=== PATIENT | male | born 1980 | race Caucasian/White ===

== ENCOUNTER 2019-12-30 19:45 | Emergency (ER) | payer OTHER, SELFPAY ==
[2019-12-30 19:56] VITALS: BP 161/110; PULSE 89; RESP 18; TEMP 36.7; O2SAT 95; BMI 46.0
[2019-12-30 20:12] VITALS: BP 184/96; PULSE 88; RESP 18; O2SAT 93
--- NOTE | 2019-12-30 20:39 | ECG_ITS ---
[facility], Former[facility] Test Date: 2019-12-30 Pat Name: Loc Carl Department: Room: Gender: Male Cook Ship: : 1980 Requested By: Steven Llanes Order Number: [id number] Harrison MD: Dee Epps M.D. Measurements Intervals Stuart Rate: 75 P: 28 TX: 186 QRS: 6 QRSD: 120 T: 16 QT: 365 QTc: 410 Interpretive Statements SINUS RHYTHM MODERATE INTRAVENTRICULAR CONDUCTION DELAY [110+ ms QRS DURATION] No previous ECG available for comparison Electronically Signed On 12-31-2019 12:41:46 CDT by Dee Epps M.D. [id number] f
[2019-12-30 20:49] VITALS: BP 165/98
[2019-12-30] MEDS: cloNIDine 0.1 mg Tablet PO (20:49)
[2019-12-30] MEDS: amlodipine 10 mg Tablet PO (20:55)
[2019-12-30] MEDS: lidocaine 2% viscous 15 ML, aluminum-mag hydrox-simethicon 30 ML, sucralfate oral liq 1 GM PO (21:00)
[2019-12-30 21:16] LABS: Basophils # 0.1 10^3/uL (0.0-0.1); Basophils % 0.7 %; Eosinophils # 0.5 10^3/uL (0.0-0.8); Eosinophils % 3.7 %; Hematocrit 47.8 % (42.0-52.0); Hemoglobin 14.9 g/dL (11.7-16.6); Lymphocytes # 3.2 10^3/uL (0.8-4.8); Lymphocytes % 25.7 %; Mean Corpuscular HGB Conc 31.2 g/dL (30.0-36.0); Mean Corpuscular Volume 80.2 fL (80-94); Mean Platelet Volume 10.5 fL (7.4-10.4); Monocytes # 0.9 10^3/uL (0.2-0.9); Neutrophils # 7.67 10^3/uL (1.8-7.7); Neutrophils % 62.5 %; Nucleated Red Blood Cells % 0 %; Platelet Count 342 10^3/cmm (130-400); Red Blood Count 5.96 10^6/uL (4.1-5.3); Red Cell Distribution Width 14.9 % (12.1-15.1); White Blood Count 12.3 10^3/uL (4.0-10.0)
[2019-12-30 21:24] LABS: Alanine Aminotransferase 22 U/L (0-41); Albumin Level 4.2 g/dL (3.5-5.2); Alkaline Phosphatase 79 IU/L (40-130); Anion Gap 14.9 (5-19); Aspartate Amino Transferase 14 U/L (0-40); Blood Urea Nitrogen 13 mg/dL (6-20); Calcium 9.8 mg/dL (8.5-10.5); Carbon Dioxide 23 mmol/L (22-29); Chloride 101 mmol/L (98-107); Creatine Phosphokinase 88 U/L (39-308); Globulin 3.2 g/dL (1.3-4.6); Glomerular Filtration Rate 108.8 mL/min (90-130); Glucose 131 mg/dL (65-115); Osmolality Calculated 278 mOsm/kg (285-295); Potassium 3.9 mmol/L (3.5-5.1); Sodium 135 mmol/L (136-145); Total Bilirubin 0.2 mg/dL (0.15-1.2); Total Protein 7.4 g/dL (6.6-8.7)
[2019-12-30 21:26] LABS: Troponin T (5th) Once 6 ng/L (0-15)
[2019-12-30 22:02] VITALS: BP 143/77; PULSE 76; RESP 16; O2SAT 94
--- NOTE | 2019-12-31 03:26 | W.ED.GENADLT ---
HPI - General Adult General: Chief complaint: General Medical Stated complaint: high bp Time Seen by Provider: 12/30/19 20:30 History of Present Illness: HPI narrative: Healthy 39-year-old with no prior history of hypertension. He checked his blood pressure tonight, as he had not checked it in a while, and it was significantly elevated. He checks it in both arms on a couple of different occasions today, and it remained high so. He presents to the emergency room. Evidently he is going out of town, and was concerned about leaving town with his blood pressure being this high. He also complained of some heartburn that was more significant today. Onset (ago): day(s) Radiation: non-radiation Relieving factors: none Exacerbating factors: none Associated symptoms: Deny chest pain, confusion, diaphoresis, dyspnea, fevers/chills, headache(s), rash or vomiting Review of Systems Const: Denies: diaphoresis Eyes: Denies: change in vision or blurry vision ENMT: Denies: swelling of lips/tongue, change in hearing or sinus pain Card: Denies: chest pain Resp: Denies: dyspnea, productive cough, non-productive cough or wheezing GI: Denies: vomiting : Denies: difficulty urinating or hematuria Musc: Denies: neck pain or back pain Skin/Breast: Denies: rash, pruritus or erythema Neuro: Denies: headache(s) or confusion Psych: Denies: anxiety Physical Exam Const: GENERAL APPEARANCE: well developed ORIENTATION/CONSCIOUSNESS: Yes oriented to person, Yes oriented to place and Yes oriented to time HENMT: COMMON NORMALS: normocephalic, external ears normal and Normal external nose present HEAD & SCALP: normocephalic FACE & SINUS: normal facial exam NOSE: Normal external nose present and No nasal discharge present EXTERNAL EAR: Yes external ears normal MOUTH: tongue normal Eye: COMMON NORMALS: Equal, round and reactive pupils present, EOMs intact bilaterally and conjunctivae normal EYELID: eyelids normal CONJUNCTIVA: Yes conjunctivae normal PUPIL: Yes Equal, round and reactive pupils present Neck/C-Spine: GENERAL: No tracheal deviation Chest: COMMONS NORMALS: normal inspection of the chest CHEST: No tenderness Resp: COMMON NORMALS: clear to auscultation bilaterally EFFORT & INSPECTION: No tachypneic, No respiratory distress, No retractions, No uses accessory muscles and No tracheal deviation AUSCULTATION: clear to auscultation bilaterally, no rhonchi, no wheezes and lung sounds not diminished Cardio: COMMON NORMALS: regular rate and regular rhythm RATE: regular rate RHYTHM: regular rhythm HEART SOUNDS: no murmurs PERIPHERAL PULSES: radial pulses present GI: INSPECTION: No abdominal distension AUSCULTATION: No Hyperactive bowel sounds present and No Hypoactive bowel sounds present PALPATION: No Guarding due to palpation present (GI) and No Rigid due to palpation PERCUSSION: no dullness to percussion and no tympanic to percussion Neuro: SENSORIUM/ORIENTATION: Yes oriented to person, Yes oriented to place and Yes oriented to time Psych: COMMON NORMALS: mental status grossly normal Skin: COMMON NORMALS: no rashes or lesions noted GENERAL SKIN EXAM: no rashes or lesions noted Course Vital Signs: Vital signs: Vital Signs Temperature 98.0 F 12/30/19 19:56 Pulse Rate 76 12/30/19 22:02 Respiratory Rate 16 12/30/19 22:02 Blood Pressure 143/77 12/30/19 22:02 Pulse Oximetry 94 12/30/19 22:02 MDM - General Adult MDM Narrative: Medical decision making narrative: Pressure came down nicely with 1 dose of clonidine followed by amlodipine. He does have an increased white blood cell count, otherwise labs are benign. His troponin is 6. His EKG is normal he will be given a prescription of amlodipine, told him to take his pressure twice daily. Lab Data: Labs: Lab Results 12/30/19 12/30/19 12/30/19 Range/Units 20:56 20:56 20:56 WBC 12.3 H (4.0-10.0) 10^3/ uL RBC 5.96 H (4.1-5.3) 10^6/u L Hgb 14.9 (11.7-16.6) g/dL Hct 47.8 (42.0-52.0) % MCV 80.2 (80-94) fL MCH 25.0 L (28.0-34.0) pg MCHC 31.2 (30.0-36.0) g/dL RDW 14.9 (12.1-15.1) % Plt Count 342 (130-400) 10^3/c mm MPV 10.5 H (7.4-10.4) fL Neut % (Auto) 62.5 % Lymph % (Auto) 25.7 % [place] % (Auto) 7.0 % Eos % (Auto) 3.7 % Baso % (Auto) 0.7 % Neut # (Auto) 7.67 (1.8-7.7) 10^3/u L Lymph # (Auto) 3.2 (0.8-4.8) 10^3/u L [place] # (Auto) 0.9 (0.2-0.9) 10^3/u L Eos # (Auto) 0.5 (0.0-0.8) 10^3/u L Baso # (Auto) 0.1 (0.0-0.1) 10^3/u L Nucleated RBC % (a uto) 0 % Nucleated RBCs # 0.0 /100WBC Sodium 135 L (136-145) mmol/L Potassium 3.9 (3.5-5.1) mmol/L Chloride 101 (98-107) mmol/L Carbon Dioxide 23 (22-29) mmol/L Anion Gap 14.9 (5-19) BUN 13 (6-20) mg/dL Creatinine 0.8 (0.7-1.2) mg/dL GFR Calculation 108.8 (90-130) mL/min Glucose 131 H (65-115) mg/dL Calculated Osmolal ity 278 L (285-295) mOsm/k g Calcium 9.8 (8.5-10.5) mg/dL Magnesium 2.0 (1.7-2.3) mg/dL Total Bilirubin 0.2 (0.15-1.2) mg/dL AST 14 (0-40) U/L ALT 22 (0-41) U/L Alkaline Phosphata se 79 (40-130) IU/L Creatine Kinase 88 (39-308) U/L Troponin T Gen 5 n g/L 6 (0-15) ng/L Total Protein 7.4 (6.6-8.7) g/dL Albumin 4.2 (3.5-5.2) g/dL Globulin 3.2 (1.3-4.6) g/dL Discharge Plan Discharge Patient Disposition: Home Clinical Impression: Hypertension Qualifiers: Hypertension type: essential hypertension Qualified Code(s): I10 - Essential (primary) hypertension Condition: Stable Prescriptions: New amlodipine 10 mg tablet 10 mg PO DAILY Qty: 30 RF: 0 Discharge Orders: Discharge Order (Routine); Ordered 12/30/19 Ordered By: Steven Herrera Discharge Diet: Low Salt Discharge Activity: Increase activity as tolerated Patient Instructions: Hypertension (ED) Activity Restrictions/Additional Instructions: Check your blood pressures twice daily. If blood pressure is staying above 140/90, take the medication prescribed. See your doctor for follow-up. 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
== END 2019-12-30 22:03 | disposition home or self-care (01) ==
PROVIDERS: Emergency Provider Emergency Medicine
DX: I10 Essential (primary) hypertension (principal)
CPT/HCPCS: 12345; 80053; 82550; 83735; 84484; 85025; 93005; 99281; 99283

== ENCOUNTER → 2020-12-31 13:33 | Outpatient (BNVA) | payer OTHER, SELFPAY | PROVIDERS: Visit Provider Registered Nurse Neonatal Intensive Care | DX: Z20.822 Contact with and (suspected) exposure to COVID-19 (principal); J02.9 Acute pharyngitis, unspecified | CPT/HCPCS: 87635 ==

== ENCOUNTER 2021-04-10 14:49 | Observation (INO) | payer OTHER, SELFPAY ==
[2021-04-10 15:19] VITALS: BP 120/78; PULSE 89; RESP 16; TEMP 37.1; O2SAT 96
--- NOTE | 2021-04-10 16:13 | USR_ITS ---
PROCEDURE INFORMATION: Exam: US Scrotum and Artery or Vein of the Abdominal and/or Reproductive Organs, Limited Scrotum Exam date and time: 04/10/2021 4:13 PM Age: 41 years old Clinical indication: Scrotum pain; Additional info: Large abscess TECHNIQUE: Imaging protocol: Real-time ultrasound of the scrotum. Real-time duplex ultrasound scan of the arterial or venous flow with brooke scale, color Doppler flow and spectral waveform analysis with image documentation. Limited Duplex exam focused of the scrotum. Duplex images required to evaluate for torsion and other vascular conditions. COMPARISON: CT Abdomen/Pelvis Renal [id number] 09/18/2018 5:56 PM FINDINGS: Right testicle: Right testicular contour and parenchymal echotexture is normal. There is no mass. There is normal blood flow in the right testicle. The right testicle measures 4.2 x 2.8 x 2.7 cm. Left testicle: Left testicular contour and parenchymal echotexture is normal. There is no mass. There is normal blood flow in the left testicle. The left testicle measures 4.0 x 2.6 x 2.4 cm. Epididymides: There is a 4 mm cyst in the left epididymal head. Scrotum: No significant hydrocele. There is marked posterior scrotal wall edema and hyperemia. The skin is markedly thickened. There is no discrete fluid collection. US/US scrotum [id number] IMPRESSION: 1. Scrotal wall edema. No abscess. 2. Normal testicles. Radiation Dose CTDIVOL = (mGy): DLP = (mGy-cm)
--- NOTE | 2021-04-10 16:18 | W.ED.MALEGU ---
Documented by User: BLAIRE Cagle 04/10/21 16:30 HPI - Male Genitourinary General: Chief complaint: Wound/Laceration Stated complaint: PAIN/SWELLING LUMP IN GROIN AREA Time Seen by Provider: 04/10/21 15:57 Source: patient Mode of arrival: ambulatory Limitations: no limitations History of Present Illness: HPI Narrative: Patient is a very nice 41-year-old male who presents to ED today for evaluation for a genital abscess. Patient states he first noticed a small lesion that he thought was most likely an ingrown hair a few weeks ago. Patient tried to cleanse the area thoroughly but began noticing some mild swelling and redness. He states he was seen at urgent care and prescribed doxycycline. Patient states he has been on this medication over the past 72 hours but has significantly worsened over that time period. He does not complain of fevers but reports chills last night. He has no history of staph/MRSA. He is not a diabetic. Patient is not immunocompromised. He has no history of new sexual partners or concerns for STDs. No dysuria or penile discharge. MD Complaint: other (scrotal swelling/abscess) Onset (ago): day(s) Duration: constant Location: right testicle (scrotum) Severity: severe Quality: aching Exacerbating factors: other (walking) Associated symptoms: Reports fevers/chills; Deny nausea or vomiting Related Data: Sexually active: Yes Review of Systems Const: Reports: chills; Denies: fever(s), body aches or fatigue Card: Denies: chest pain Resp: Denies: dyspnea GI: Denies: abdominal pain, nausea, vomiting or diarrhea [facility] ED PFSH: Social History (Updated 12/31/20 @ 12:45 by Mikki Mathis LPN) Smoking and tobacco status: current every day smoker Physical Exam Const: COMMON NORMALS: no acute distress, patient oriented x3, no limitations and alert NUTRITIONAL APPEARANCE: obese morbidly obese ORIENTATION/CONSCIOUSNESS: Yes awake, Yes oriented to person, Yes oriented to place and Yes oriented to time Resp: COMMON NORMALS: normal respiratory effort Cardio: COMMON NORMALS: regular rate and regular rhythm RATE: regular rate RHYTHM: regular rhythm GI: COMMON NORMALS: Normal to inspection, nondistended, normoactive bowel sounds present, Soft to palpation and non-tender PALPATION: Yes Soft to palpation OTHER: limited secondary to body habitus : PENIS: normal penis SCROTUM: Yes scrotal swelling TESTES: Yes other (normal L testicle) OTHER: pt has significant R sided scrotal swelling, erythema, and tenderness; he has a small area to the inferior aspect that is actively draining foul smelling purulent material; R testicle cannot be palpated secondary to edema; he has edematous/indurated skin to anterior scrotum; infection does not seem to extend into perineal region Neuro: COMMON NORMALS: patient oriented x3 SENSORIUM/ORIENTATION: Yes alert, Yes oriented to person, Yes oriented to place and Yes oriented to time Course Vital Signs: Vital signs: Vital Signs Temperature 98.7 F 04/10/21 15:19 Pulse Rate 86 04/10/21 17:33 Respiratory Rate 18 04/10/21 17:48 Blood Pressure 157/83 04/10/21 17:33 Pulse Oximetry 95 04/10/21 17:33 MDM - Male Lab Data: Labs: Lab Results 04/10/21 04/10/21 04/10/21 16:45 16:45 17:18 WBC 16.7 10^3/uL H 10 ^3/uL (4.0-10.0) RBC 5.88 10^6/uL H 10 ^6/uL (4.1-5.3) Hgb 15.0 g/dL g/dL (11.7-16.6) Hct 47.3 % % (42.0-52.0) MCV 80.4 fl fl (80-94) MCH 25.5 pg L pg (28.0-34.0) MCHC 31.7 g/dL g/dL (30.0-36.0) RDW 15.4 % H % (12.1-15.1) Plt Count 344 10^3/cmm 10^3 /cmm (130-400) MPV 10.3 fL fL (7.4-10.4) Neut % (Auto) 76.7 % % Lymph % (Auto) 12.1 % % [place] % (Auto) 8.2 % % Eos % (Auto) 2.0 % % Baso % (Auto) 0.5 % % Neut # (Auto) 12.79 10^3/uL H 1 0^3/uL (1.8-7.7) Lymph # (Auto) 2.0 10^3/uL 10^3/ uL (0.8-4.8) [place] # (Auto) 1.4 10^3/uL H 10^ 3/uL (0.2-0.9) Eos # (Auto) 0.3 10^3/uL 10^3/ uL (0.0-0.8) Baso # (Auto) 0.1 10^3/uL 10^3/ uL (0.0-0.1) Nucleated RBC % (a uto) 0 % % Nucleated RBCs # 0.0 /100WBC /100W BC Sodium 138 mmol/L mmol/L (136-145) Potassium 3.8 mmol/L mmol/L (3.5-5.1) Chloride 99 mmol/L mmol/L (98-107) Carbon Dioxide 28 mmol/L mmol/L (22-29) Anion Gap 14.8 (5-19) BUN 9 mg/dL mg/dL (6-20) Creatinine 0.7 mg/dL mg/dL (0.7-1.2) GFR Calculation 125.5 mL/min mL/m in (90-130) Glucose 92 mg/dL mg/dL (65-115) Calculated Osmolal ity 284 mOsm/kg L mOs m/kg (285-295) Calcium 9.4 mg/dL mg/dL (8.5-10.5) Total Bilirubin 0.4 mg/dL mg/dL (0.15-1.2) AST 13 U/L U/L (0-40) ALT 16 U/L U/L (0-41) Alkaline Phosphata se 76 IU/L IU/L (40-130) C-Reactive Protein 162.3 mg/L H mg/L (0.0-4.9) Total Protein 7.5 g/dL g/dL (6.6-8.7) Albumin 4.1 g/dL g/dL (3.5-5.2) Globulin 3.4 g/dL g/dL (1.3-4.6) Urine Color Dark yellow (Yellow) Urine Appearance Hazy A (CLEAR) Urine pH 5 (5-7) Ur Specific Gravit y 1.020 (1.005-1.030) Urine Protein Neg (Negative) Urine Glucose (UA) Norm (Normal) Urine Ketones Negative (Negative) Urine Blood Neg (Negative) Urine Nitrate Negative (Negative) Urine Bilirubin Neg (Negative) Urine Urobilinogen Norm mg/dL mg/dL (Negative) Ur Leukocyte Catherine ase Negative (Negative) Discharge Plan Discharge Prescriptions: No Action amlodipine 10 mg tablet 10 mg PO DAILY Qty: 30 RF: 0 Coding Level of Care Code ED Vehicle Cost Engineer for Chg Fwd Exam Detailed Documented by User: ARTURO Irene 04/10/21 18:19 HPI - Male Genitourinary General: Chief complaint: Wound/Laceration Stated complaint: PAIN/SWELLING LUMP IN GROIN AREA Time Seen by Provider: 04/10/21 15:57 PFSH ED PFSH: Social History (Updated 12/31/20 @ 12:45 by Mikki Mathis LPN) Smoking and tobacco status: current every day smoker Course ED course: 1700, received patient from Mayelin Rodriguez PA-C, we are awaiting lab and imaging report. Patient has a probable scrotal abscess on the right side. The area is draining. Patient was started on doxycycline 72 hours ago. Patient is morbidly obese with no history of diabetes. 1800, CT and ultrasound both come back with induration of the tissue, discussed this with Dr. Mccarthy who recommended that we speak with the attending physician for hospitalist therapy for admission. Consultations: Consultation #1: Reviewed patient with Dr. Israel for admission to the hospital for cellulitis of the scrotum. Vital Signs: Vital signs: Vital Signs Temperature 98.7 F 04/10/21 15:19 Pulse Rate 86 04/10/21 17:33 Respiratory Rate 18 04/10/21 17:48 Blood Pressure 157/83 04/10/21 17:33 Pulse Oximetry 95 04/10/21 17:33 MDM - Male MDM Narrative: Medical decision making narrative: Patient came in today for complaints of induration and swelling with pain to the right scrotum. Patient reports no significant fever. Patient appears mildly unwell but not toxic. Patient does appear in some significant pain. On exam we note some induration and swelling to the scrotum with an area to the posterior part of the scrotum that is draining some serous fluid. There is some redness that extends onto the thigh. Differential diagnosis includes Miri's gangrene, cellulitis, abscess. CT and ultrasound indicated just induration of the tissue without any signs of gas formation. CBC had a white count of 16.7. Remainder of labs were unremarkable. Blood cultures were sent. I reviewed the exam with Dr. Mccarthy who recommended patient be admitted to the hospital for IV therapy. Patient was given Levaquin and vancomycin in the ER. Dr. Israel was consulted for continuation of care in hospital. Lab Data: Labs: Lab Results 04/10/21 04/10/21 04/10/21 16:45 16:45 17:18 WBC 16.7 10^3/uL H 10 ^3/uL (4.0-10.0) RBC 5.88 10^6/uL H 10 ^6/uL (4.1-5.3) Hgb 15.0 g/dL g/dL (11.7-16.6) Hct 47.3 % % (42.0-52.0) MCV 80.4 fl fl (80-94) MCH 25.5 pg L pg (28.0-34.0) MCHC 31.7 g/dL g/dL (30.0-36.0) RDW 15.4 % H % (12.1-15.1) Plt Count 344 10^3/cmm 10^3 /cmm (130-400) MPV 10.3 fL fL (7.4-10.4) Neut % (Auto) 76.7 % % Lymph % (Auto) 12.1 % % [place] % (Auto) 8.2 % % Eos % (Auto) 2.0 % % Baso % (Auto) 0.5 % % Neut # (Auto) 12.79 10^3/uL H 1 0^3/uL (1.8-7.7) Lymph # (Auto) 2.0 10^3/uL 10^3/ uL (0.8-4.8) [place] # (Auto) 1.4 10^3/uL H 10^ 3/uL (0.2-0.9) Eos # (Auto) 0.3 10^3/uL 10^3/ uL (0.0-0.8) Baso # (Auto) 0.1 10^3/uL 10^3/ uL (0.0-0.1) Nucleated RBC % (a uto) 0 % % Nucleated RBCs # 0.0 /100WBC /100W BC Sodium 138 mmol/L mmol/L (136-145) Potassium 3.8 mmol/L mmol/L (3.5-5.1) Chloride 99 mmol/L mmol/L (98-107) Carbon Dioxide 28 mmol/L mmol/L (22-29) Anion Gap 14.8 (5-19) BUN 9 mg/dL mg/dL (6-20) Creatinine 0.7 mg/dL mg/dL (0.7-1.2) GFR Calculation 125.5 mL/min mL/m in (90-130) Glucose 92 mg/dL mg/dL (65-115) Calculated Osmolal ity 284 mOsm/kg L mOs m/kg (285-295) Calcium 9.4 mg/dL mg/dL (8.5-10.5) Total Bilirubin 0.4 mg/dL mg/dL (0.15-1.2) AST 13 U/L U/L (0-40) ALT 16 U/L U/L (0-41) Alkaline Phosphata se 76 IU/L IU/L (40-130) C-Reactive Protein 162.3 mg/L H mg/L (0.0-4.9) Total Protein 7.5 g/dL g/dL (6.6-8.7) Albumin 4.1 g/dL g/dL (3.5-5.2) Globulin 3.4 g/dL g/dL (1.3-4.6) Urine Color Dark yellow (Yellow) Urine Appearance Hazy A (CLEAR) Urine pH 5 (5-7) Ur Specific Gravit y 1.020 (1.005-1.030) Urine Protein Neg (Negative) Urine Glucose (UA) Norm (Normal) Urine Ketones Negative (Negative) Urine Blood Neg (Negative) Urine Nitrate Negative (Negative) Urine Bilirubin Neg (Negative) Urine Urobilinogen Norm mg/dL mg/dL (Negative) Ur Leukocyte Catherine ase Negative (Negative) Discharge Plan Discharge Prescriptions: No Action amlodipine 10 mg tablet 10 mg PO DAILY Qty: 30 RF: 0 Coding Level of Care Code ED Vehicle Cost Engineer for Tammi Fwd Exam Detailed
[2021-04-10 16:47] VITALS: RESP 18
[2021-04-10] MEDS: morphine 4 mg/mL SDV 1 mL IVP ×2 (16:47→17:48)
[2021-04-10] MEDS: ondansetron 2 mg/ML SDV 2 mL 4 MG IVP (16:48)
--- NOTE | 2021-04-10 16:49 | CTR_ITS ---
PROCEDURE INFORMATION: Exam: CT Abdomen And Pelvis With Contrast Exam date and time: 04/10/2021 4:49 PM Age: 41 years old Clinical indication: Pain; Other: Abcess on genitals; Prior surgery; Surgery type: Hernia; Additional info: Severe R scrotal/genital abscess TECHNIQUE: Imaging protocol: Computed tomography of the abdomen and pelvis with contrast. Radiation optimization: All CT scans at this facility use at least one of these dose optimization techniques: automated exposure control; mA and/or kV adjustment per patient size (includes targeted exams where dose is matched to clinical indication); or iterative reconstruction. Contrast material: OMNI 350; Contrast volume: 95 ml; Contrast route: INTRAVENOUS (IV); COMPARISON: CT Abdomen/Pelvis Renal [id number] 09/18/2018 5:56 PM RADIATION DOSE METRICS: Total DLP (mGy-cm): 2814.83 FINDINGS: Lungs: Lung bases are clear. Liver: The liver is normal. Gallbladder and bile ducts: The gallbladder is normal. There is no biliary dilation. Pancreas: The pancreas is unremarkable. Spleen: The spleen is unremarkable. Adrenal glands: The adrenal glands are unremarkable. Kidneys and ureters: The kidneys are unremarkable. No hydronephrosis or stones. No ureteral dilation. Stomach and bowel: The stomach is decompressed, preventing meaningful evaluation of wall thickness. The small bowel is nondilated. The colon is unremarkable. Appendix: The appendix is normal. Intraperitoneal space: There is no free air or significant intraperitoneal free fluid. Vasculature: The aorta is unremarkable. There is no aneurysm. The portal, splenic and superior mesenteric veins are patent. Lymph nodes: There are prominent bilateral inguinal lymph nodes which are likely reactive. There is no retroperitoneal or mesenteric lymphadenopathy. Urinary bladder: The urinary bladder is decompressed, preventing meaningful evaluation of wall thickness. Reproductive: There is marked diffuse edema and skin thickening of the posteroinferior aspect of the scrotum on the right. In the region of maximal skin thickening there is a subtle irregular hypodensity (axial series 2, image 117) measuring 12 x 9 mm. This finding suggests the presence of trace fluid but is not a drainable abscess. Bones/joints: Bones are unremarkable. Soft tissues: Right scrotal edema. No soft tissue gas. There is a small fat containing umbilical hernia. CT/CT abdomen pelvis w con* [id number] IMPRESSION: Marked scrotal wall edema without a drainable abscess. Radiation Dose CTDIVOL = (mGy): DLP = 2814.83 (mGy-cm)
--- NOTE | 2021-04-10 16:51 | PC.NURSE ---
PATIENT GIVEN GOWN AND CHANGED FOR EXAM. PROVIDER AND THIS NURSE PRESENT FOR EXAMINATION. WHILE PATIENT WAS REMOVING UNDERWEAR, SCROTUM BEGAN TO LEAK FLUID. FLUID COLLECTED FOR CULTURE. PATIENT SCROTUM APPEARS SWOLLEN AND RED. PATIENT TOLERATED EXAM WELL.
[2021-04-10 16:54] LABS: Basophils # 0.1 10^3/uL (0.0-0.1); Basophils % 0.5 %; Eosinophils # 0.3 10^3/uL (0.0-0.8); Hematocrit 47.3 % (42.0-52.0); Lymphocytes % 12.1 %; Mean Corpuscular HGB Conc 31.7 g/dL (30.0-36.0); Mean Corpuscular Hemoglobin 25.5 pg (28.0-34.0); Mean Corpuscular Volume 80.4 fl (80-94); Mean Platelet Volume 10.3 fL (7.4-10.4); Monocytes # 1.4 10^3/uL (0.2-0.9); Monocytes % 8.2 %; Neutrophils # 12.79 10^3/uL (1.8-7.7); Neutrophils % 76.7 %; Nucleated Red Blood Cells % 0 %; Platelet Count 344 10^3/cmm (130-400); Red Blood Count 5.88 10^6/uL (4.1-5.3); Red Cell Distribution Width 15.4 % (12.1-15.1); White Blood Count 16.7 10^3/uL (4.0-10.0)
[2021-04-10 17:18] LABS: Alanine Aminotransferase 16 U/L (0-41); Albumin Level 4.1 g/dL (3.5-5.2); Alkaline Phosphatase 76 IU/L (40-130); Anion Gap 14.8 (5-19); Aspartate Amino Transferase 13 U/L (0-40); Blood Urea Nitrogen 9 mg/dL (6-20); C Reactive Protein 162.3 mg/L (0.0-4.9); Calcium 9.4 mg/dL (8.5-10.5); Carbon Dioxide 28 mmol/L (22-29); Chloride 99 mmol/L (98-107); Globulin 3.4 g/dL (1.3-4.6); Glomerular Filtration Rate 125.5 mL/min (90-130); Glucose 92 mg/dL (65-115); Osmolality Calculated 284 mOsm/kg (285-295); Potassium 3.8 mmol/L (3.5-5.1); Sodium 138 mmol/L (136-145); Total Bilirubin 0.4 mg/dL (0.15-1.2); Total Protein 7.5 g/dL (6.6-8.7)
[2021-04-10] MEDS: iohexol 350 mg/mL 100 mL Btl IV (17:20)
[2021-04-10 17:33] VITALS: BP 157/83; PULSE 86; RESP 18; O2SAT 95
[2021-04-10 17:37] LABS: Add Urine Microscopic? NO; Charge for UA Resulting for Rev
[2021-04-10] MEDS: levofloxacin-dextrose 5 % 500 MG/100 ML PREMIX 100 MG IV (17:38)
[2021-04-10 17:45] LABS: Bilirubin Urine Neg (Negative); Blood Urine Neg (Negative); Glucose Urine UA Norm (Normal); Ketones Urine Negative (Negative); Leukocyte Esterase Urine Negative (Negative); Nitrate Urine Negative (Negative); Protein Urine Neg (Negative); Urine Appearance Hazy (CLEAR); Urine Color Dark Yellow (Yellow); Urobilinogen Urine Norm (Negative); pH Urine 5 (5-7)
[2021-04-10 17:48] VITALS: RESP 18
--- NOTE | 2021-04-10 18:31 | P.HP_ITS ---
Providers/Chief Complaint Primary Care Provider: Eva Laird MD Chief Complaint: PAIN/SWELLING LUMP IN GROIN AREA History of Present Illness Loc Carl is a 41 year old male with a past medical history of hypertension, who presents [facility] due to scrotal swelling. Patient tells me that a few days ago, he noticed an area of tenderness over his scrotum, felt like a bump, he was able to pop it, and expelled some sputum, over the next few days, the area of swelling, tenderness rapidly expanded, and it continues to d rain, so he went to his primary care provider and was given antibiotics, he is taken about 2 days of antibiotics, but the erythema, tenderness and swelling continues to rapidly involve the entire scrotum, he has a significant scrotal pain, no burning with urination, no history of STDs, no fevers, no chills. Review of Systems Const: Denies: fever(s), chills, fatigue or malaise ENMT: Denies: nasal congestion Resp: Denies: dyspnea, productive cough, non-productive cough or wheezing GI: Denies: abdominal pain, nausea, vomiting, hematochezia or melena : Denies: flank pain, difficulty urinating, dysuria, urinary frequency, urinary urgency, urinary hesitancy or difficulty starting urination Musc: Denies: back pain Skin/Breast: Reports: rash and erythema Neuro: Denies: headache(s) Medications/Allergies Home Medications Medication Instructions Recorded Confirmed Last Taken Type amlodipine 10 mg PO DAILY #30 tab 12/30/19 12/31/20 Unknown Rx Allergies Allergy/AdvReac Type Severity Reaction Status Date / Time sulfamethoxazole Allergy ALGY-Rash Verified 12/31/20 12:44 [From Bactrim] trimethoprim [From Bactrim] Allergy ALGY-Rash Verified 12/31/20 12:44 PFSH Acute PFSH: Medical History (Updated 04/10/21 @ 18:35 by Parag Israel MD) Hypertension Surgical History (Updated 04/10/21 @ 18:34 by Parag Israel MD) History of hernia surgery History of knee surgery Family History (Updated 04/10/21 @ 18:34 by Parag Israel MD) Family/Other Colon cancer Father Pacemaker Social History (Updated 04/10/21 @ 18:34 by Parag Israel MD) Smoking and tobacco status: current every day smoker Alcohol intake: current Substance/Drug Use: never Vitals/I&O/Wt Last Vital Signs Temp 98.7 F 04/10/21 15:19 Pulse 86 04/10/21 17:33 Resp 18 04/10/21 17:48 BP 157/83 04/10/21 17:33 Pulse Ox 95 04/10/21 17:33 Weight last 48 hrs Weight 156.489 kg Physical Exam Const: COMMON NORMALS: no acute distress and patient oriented x3 GENERAL APPEARANCE: cooperative and comfortable HENMT: COMMON NORMALS: normocephalic HEAD & SCALP: normocephalic Eye: COMMON NORMALS: Equal, round and reactive pupils present and EOMs intact bilaterally PUPIL: Yes Equal, round and reactive pupils present Neck/C-Spine: COMMON NORMALS: full ROM and no lymphadenopathy THYROID: Thyroid normal Lymph: LYMPHATIC: no lymphadenopathy noted Resp: COMMON NORMALS: normal respiratory effort, No retractions, No use of accessory muscles and clear to auscultation bilaterally AUSCULTATION: clear to auscultation bilaterally Cardio: COMMON NORMALS: regular rate, regular rhythm, S1 normal heart sound present, S2 normal heart sound present, No gallops present (Cardio), No clicks present (Cardio) and No murmurs present (Cardio) RATE: regular rate RHYTHM: regular rhythm HEART SOUNDS: S1 normal heart sound present and S2 normal heart sound present GI: COMMON NORMALS: Normal to inspection, nondistended, normoactive bowel sounds present, Soft to palpation and non-tender : PENIS: uncircumcised OTHER: Significant scrotal swelling, erythema, tenderness to involve the entire scrotum, stretching into the perineum Right testicle, open area, with active pustulant drainage, palpable density Extremity: COMMON NORMALS: normal to inspection and no pedal edema Neuro: COMMON NORMALS: patient oriented x3, CN's II-XII intact bilaterally, moves all extremities and no focal motor deficits Psych: COMMON NORMALS: mental status grossly normal, Normal thought process present and cooperative THOUGHT PROCESS: Normal thought process present Data : 04/10/21 16:45 04/10/21 16:45 Micro: Microbiology 04/10/21 16:11 Gram Stain - Final Scrotum A&P Assessment and plan (1) Cellulitis of scrotum: -Scrotal cellulitis with concern for underlying abscess -Ultrasound of scrotum shows scrotal wall edema, no abscess, normal testicles -CT scan of abdomen pelvis shows scrotal wall edema -WBC 16.7, CRP 162 -UA with no evidence of UTI -Start broad-spectrum antibiotic therapy, vancomycin, Zosyn -Cultures pending -Consult urology service for possible incision and drainage -Full code -Lovenox for DVT prophylaxis Status: Acute Attestations Medical Necessity Statement*: Patient requires hospitalization, outpatient with observation, for scrotal cellulitis Coding Level of Care Code Acute Duck Operator for [facility] Diagnoses Cellulitis of scrotum N49.2
[2021-04-10 18:34] LABS: Lactic Sepsis W/Reflex 0.9 mmol/L (0.5-2.2)
[2021-04-10] MEDS: sodium chloride 0.9% 1,000 ML 999 ML IV (18:45)
--- NOTE | 2021-04-10 19:04 | P.CONIM_ITS ---
Providers/Reason For Consult Consulting Physician/Specialty*: Fiore/urology Reason for Consult*: Scrotal infection Requesting Physician: Dr. Israel Primary Care Provider: Eva Laird MD History of Present Illness History of Present Illness Loc Carl is a 41 year old male urgency department today for complaints of increasing scrotal tenderness swelling and drainage. First noticed pain and swelling in a fluctuant area on his scrotum several days ago. Became worse. When he was evaluated in the emergency department he had spontaneous drainage. CT scan and ultrasound were performed that showed no obvious abscess but did show significant cellulitis type changes. Physical findings showed a very erythematous edematous indurated right hemiscrotum. Markedly swollen as well. White count was elevated. Did not appear to be septic. Procedure: I&D Incision and drainage scrotal scrotal abscess 1% lidocaine was utilized for local anesthesia around the drainage site. Hemostat was passed through the drainage port and the jaws opened to allow further stretching of the incision. The wound was probed with cotton tip applicators. Minimal amount of fluid was drained. Wound was then irrigated with saline flush. Packed with iodoform Nu Gauze. Approximately 2 inches was used. He tolerated the procedure well. Impression: 1. Spontaneously drained scrotal abscess with minimal retained fluid per probing and further incision. 2. Residual cellulitis Recommendations: 1. Continue antibiotic therapy for cellulitis 2. Maintain packing for now 3. Scrotal elevation on 2 towels Review of Systems Const: Reports: malaise; Denies: fever(s) or chills Card: Denies: chest pain Resp: Denies: productive cough or wheezing : Reports: scrotal swelling (Also pain tenderness and drainage) Skin/Breast: Reports: other (Scrotal pain swelling erythema and induration) Neuro: Denies: Slurred speech present or seizure-like activity Endo: Denies: flushing Raheem/Lymph: Denies: easy bruising or easy bleeding All/Imm: Denies: urticaria or acute wheezing Meds/Allergies Home Medications and Allergies Home Medications Medication Instructions Recorded Confirmed Last Taken Type amlodipine 10 mg PO DAILY #30 tab 12/30/19 12/31/20 Unknown Rx Allergies Allergy/AdvReac Type Severity Reaction Status Date / Time sulfamethoxazole Allergy ALGY-Rash Verified 12/31/20 12:44 [From Bactrim] trimethoprim [From Bactrim] Allergy ALGY-Rash Verified 12/31/20 12:44 PFSH Acute PFSH: Medical History Hypertension Surgical History (Updated 04/10/21 @ 18:34 by Parag Israel MD) History of hernia surgery History of knee surgery Family History (Updated 04/10/21 @ 18:34 by Parag Israel MD) Family/Other Colon cancer Father Pacemaker Social History (Updated 04/10/21 @ 18:34 by Parag Israel MD) Smoking and tobacco status: current every day smoker Alcohol intake: current Substance/Drug Use: never Vitals/I&O/Wt Last Vital Signs Temp 98.7 F 04/10/21 15:19 Pulse 86 04/10/21 17:33 Resp 18 04/10/21 17:48 BP 157/83 04/10/21 17:33 Pulse Ox 95 04/10/21 17:33 Weight last 48 hrs Weight 345 lb Physical Exam Const: COMMON NORMALS: no acute distress, alert and well nourished GENERAL APPEARANCE: well kempt and well developed NUTRITIONAL APPEARANCE: obese morbidly obese ORIENTATION/CONSCIOUSNESS: not confused HENMT: COMMON NORMALS: normocephalic and atraumatic HEAD & SCALP: normocephalic and atraumatic Neck/C-Spine: COMMON NORMALS: full ROM Resp: COMMON NORMALS: normal respiratory effort EFFORT & INSPECTION: No labored and No Actively coughing Neuro: COMMON NORMALS: no focal motor deficits SENSORIUM/ORIENTATION: Yes alert Psych: COMMON NORMALS: mental status grossly normal APPEARANCE: Yes grossly normal and Yes well kempt ATTITUDE: Yes calm and Yes engaged Skin: COMMON NORMALS: no rashes or lesions noted and no jaundice GENERAL SKIN EXAM: no rashes or lesions noted Data Micro: Micro: Microbiology 04/10/21 16:45 Blood Culture - Pr eliminary Blood SPECIMEN [facility] 04/10/21 16:45 Blood Culture - Pr eliminary Blood SPECIMEN [facility] 04/10/21 16:11 Gram Stain - Final Scrotum A&P Assessment and plan (1) Scrotal abscess: Spontaneously drained prior to my evaluation. Further opened with hemostats, irrigated, probed, packed with iodoform. Status: Acute (2) Cellulitis of scrotum: Recommend continuing antibiotic therapy. Status: Acute (3) Hypertension: Status: Acute Consult Attestations Medical Necessity Statement: See attending Procedures Abscess I/D Site: scrotum Side (if applicable): right Sedation/analgesia: none Anesthetic used: lidocaine 1% (Disease) Technique: other Irrigation: Yes (Saline flush) Packing used?: iodoform Coding Level of Care Code Acute [facility] Machine [facility] Diagnoses Scrotal abscess N49.2 Cellulitis of scrotum N49.2 Hypertension I10
[2021-04-10] MEDS: lidocaine 1% INJ 20 mL INJECTION (19:27)
--- NOTE | 2021-04-10 19:27 | PC.NURSE ---
THIS NURSE PRESENT WITH DR RHODES HE OPENED AND PACKED WOUND. PATIENT TOLERATED PROCEDURE WELL.
--- NOTE | 2021-04-10 19:54 | PC.NURSE ---
PATIENT RATES PAIN A 8/[address] RHODES. PATIENT ASKED FOR PAIN MEDS. HOSPITALIST CALLED. ORDERS ENTERED.
[2021-04-10 21:07] VITALS: BP 128/78; PULSE 86; RESP 16; TEMP 37; O2SAT 95
[2021-04-10] MEDS: vancomycin 1,000 MG in sodium chloride 0.9% 250 ML 250 MG IV ×2 (21:30→23:06)
[2021-04-10] MEDS: enoxaparin 40 mg/0.4 mL Syringe SUBCUT (21:53)
[2021-04-10] MEDS: sodium chloride 0.9% 1,000 ML 50 ML IV (21:53)
--- NOTE | 2021-04-10 22:22 | PC.PHAR ---
Pharmacokinetic dosing service Date: 04/10/21 Time: 2229 Objective: Patient: Loc Carl Floor: [id number] Age: 41 yo Serum creatinine: 0.7 mg/dL Height: 71.0 Inches Weight (kg): 156.489 Diagnosis: Relevant medical/social history: Cultures and sensitivities: Other labs: Assessment: IBW (kg): 75.30 Dosing wt(kg): 107.8 Estimated Creatinine clearance (ml/min): 130 Clearance limited to 130 ml/min to reduce risk of overdosing. CRCL method: Cockcroft and Gault using ibw(default). Drug selected: Vancomycin Loading dose (mg): 0 Vd (liters): 97.0 (factor used: 0.9 L/kg) Jacky (hr-1): 0.112 Half life (hrs): 6.19 Recommended dose: mg Interval: hrs Infusion time (hrs): 1.5 Predicted peak (mcg/mL): Predicted trough (mcg/mL): Adjusted body weight was selected for vancomycin dosing. To switch back, select the total body weight option above. Renal function is stable [ ] /unstable [ ] Recommendations: Give Vancomycin mg q hrs with an expected Cpeak of mcg/ml and an expected Ctrough of mcg/ml Renal dosing of other antibiotics (review renal dosing of other medications and list guidelines here): Thank you for the consult, will continue to follow. Signature: Sonia Burrell [facility]
[2021-04-10 23:06] VITALS: RESP 18
[2021-04-10] MEDS: morphine 4 mg/mL SDV 1 mL 2 MG IVP (23:06)
[2021-04-11] VITALS (9 sets, daily range): BP systolic 103–127; BP diastolic 65–89; PULSE 68–85; RESP 16–20; TEMP 36.7–37.1; O2SAT 93–95
[2021-04-11] MEDS: piperacillin-tazobactam 3.375 GM in sodium chloride 0.9% (plus) 50 ML IV ×3 (00:34→20:40)
[2021-04-11] MEDS: morphine 4 mg/mL SDV 1 mL 2 MG IVP ×4 (04:35→20:40)
[2021-04-11 05:58] LABS: Basophils # 0.1 10^3/uL (0.0-0.1); Basophils % 0.9 %; Eosinophils # 0.5 10^3/uL (0.0-0.8); Eosinophils % 3.8 %; Hematocrit 42.3 % (42.0-52.0); Hemoglobin 13.3 g/dL (11.7-16.6); Lymphocytes # 1.9 10^3/uL (0.8-4.8); Lymphocytes % 14.9 %; Mean Corpuscular HGB Conc 31.4 g/dL (30.0-36.0); Mean Corpuscular Hemoglobin 25.2 pg (28.0-34.0); Mean Corpuscular Volume 80.3 fl (80-94); Mean Platelet Volume 10.6 fL (7.4-10.4); Monocytes # 0.9 10^3/uL (0.2-0.9); Monocytes % 7.2 %; Neutrophils # 9.37 10^3/uL (1.8-7.7); Neutrophils % 72.8 %; Nucleated Red Blood Cells % 0 %; Platelet Count 328 10^3/cmm (130-400); Red Blood Count 5.27 10^6/uL (4.1-5.3); Red Cell Distribution Width 15.4 % (12.1-15.1); White Blood Count 12.9 10^3/uL (4.0-10.0)
[2021-04-11 06:13] LABS: Estmated Average Glucose 128; Hemoglobin A1C 6.1 % (4.0-6.0)
[2021-04-11 06:15] LABS: Alanine Aminotransferase 33 U/L (0-41); Albumin Level 3.7 g/dL (3.5-5.2); Alkaline Phosphatase 74 IU/L (40-130); Aspartate Amino Transferase 28 U/L (0-40); Blood Urea Nitrogen 9 mg/dL (6-20); Calcium 8.7 mg/dL (8.5-10.5); Carbon Dioxide 24 mmol/L (22-29); Chloride 101 mmol/L (98-107); Globulin 3.3 g/dL (1.3-4.6); Glomerular Filtration Rate 125.5 mL/min (90-130); Glucose 116 mg/dL (65-115); Osmolality Calculated 282 mOsm/kg (285-295); Phosphorus 3.9 mg/dL (2.5-4.5); Sodium 136 mmol/L (136-145); Total Bilirubin 0.3 mg/dL (0.15-1.2)
--- NOTE | 2021-04-11 09:40 | PC.CHAP ---
Pastoral Care Encounter/Spiritual Assessment Type of Contact [] Declined plant care worker visit [] Patient/Family/Request visit [] Outpatient visit [] Follow-up visit [] Physician referral [] Code/Alert [x] Routine visit [] Staff referral [] Actively dying [] Patient sleeping [] Family support [] [] Out of room [] Palliative care [] [] Receiving care in room [] Pre-surgical visit [] Trauma [] Long length of stay [] ICU visit [] Other: Relational/Emotional Strength [x] Patient feels connected with others/family/visitors/staff [] Distress [] Loneliness/isolation [] Abandonment Spirituality of Patient [x] Person of Jnenifer [x] Attends Adventism of their Jennifer [x] Believes in Prayer [x] Reads Bible or Gnosticism materials [] There are Spiritual issues to be addressed Elevator Examiner Interventions [x] Prayer [x] Active listening [x] Non-anxious presence [x] Spiritual/emotional support [] Crisis/trauma care [] Spiritual counseling [] Bereavement support [] Provided bereavement packet [] Provided Bible/devotional materials [] Provided toy/stuffed animal, coloring book to patient or family member [] Provided Communion [] Anointing/[place] [] Salvation [x] Completed spiritual assessment [] Other: Impact on Illness or Injury [] Angry [] Fearful [] Anxious [] Often cries [] Exhaustion [] Unable to work [] Unable to attend scientology [] Unable to walk/stand [] Unable to read [] Unable to drive [] Unable to eat/drink [] Unable to sleep [] Unable to be with family [] Patient intubated [] Other: Summary Time spent with patient 15 min
[2021-04-11] MEDS: acetaminophen 325 mg Tablet 650 MG PO (10:21)
[2021-04-11 11:18] LABS: Glucose Point of Care 108 mg/dL (70-110)
[2021-04-11 17:27] LABS: Glucose Point of Care 188 mg/dL (70-110)
--- NOTE | 2021-04-11 18:27 | P.PN_ITS ---
Vitals/I&O/Wt Last Vital Signs Temp 98.2 F 04/11/21 15:26 Pulse 73 04/11/21 15:26 Resp 16 04/11/21 15:26 BP 117/66 04/11/21 15:26 Pulse Ox 93 04/11/21 15:26 04/11/21 04/11/21 04/11/21 06:59 14:59 22:59 Intake Total 540 / 2130 1150 / 1150 Output Total 800 / 800 950 / 950 Balance -260 / 1330 1150 / 1150 -950 / 200 Weight last 48 hrs Weight 156.489 kg Physical Exam Const: COMMON NORMALS: no acute distress and patient oriented x3 Resp: COMMON NORMALS: normal respiratory effort, No retractions, No use of accessory muscles and clear to auscultation bilaterally AUSCULTATION: clear to auscultation bilaterally Cardio: COMMON NORMALS: regular rate, regular rhythm, S1 normal heart sound present and S2 normal heart sound present RATE: regular rate RHYTHM: regular rhythm HEART SOUNDS: S1 normal heart sound present and S2 normal heart sound present GI: COMMON NORMALS: Normal to inspection, nondistended, normoactive bowel sounds present, Soft to palpation and non-tender PALPATION: Yes Soft to palpation : PENIS: uncircumcised OTHER: Significant scrotal swelling, erythema, tenderness to involve the entire scrotum, stretching into the perineum resolving Extremity: COMMON NORMALS: no pedal edema Neuro: COMMON NORMALS: patient oriented x3 Psych: COMMON NORMALS: mental status grossly normal Data : 04/11/21 05:47 04/11/21 05:47 Micro: Microbiology 04/10/21 16:45 Blood Culture - Preliminary Blood SPECIMEN COLLECTED 04/10/21 16:45 Blood Culture - Preliminary Blood SPECIMEN COLLECTED 04/10/21 16:11 Gram Stain - Final Scrotum A&P Assessment and plan (1) Cellulitis of scrotum: -Scrotal cellulitis with concern for underlying abscess -Ultrasound of scrotum shows scrotal wall edema, no abscess, normal testicles -CT scan of abdomen pelvis shows scrotal wall edema -WBC 12.9, CRP 162 -UA with no evidence of UTI -Start broad-spectrum antibiotic therapy, vancomycin, Zosyn -Cultures pending -Consult urology service for possible incision and drainage -Full code -Lovenox for DVT prophylaxis Status: Acute Attestations Medical Necessity Statement*: patient requires hospitalization for cellulitis of the scrotum Coding Level of Care Code Acute Impact Retail 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
[2021-04-11 20:09] LABS: Glucose Point of Care 130 mg/dL (70-110)
[2021-04-11] MEDS: enoxaparin 40 mg/0.4 mL Syringe SUBCUT (21:58)
[2021-04-11 23:31] LABS: Vancomycin Trough 18.7 ug/mL (10-15)
[2021-04-12] VITALS (7 sets, daily range): BP systolic 128–153; BP diastolic 61–82; PULSE 73–82; RESP 16–18; TEMP 36.6–37.1; O2SAT 94–97
[2021-04-12] MEDS: sodium chloride 0.9% 1,000 ML 50 ML IV (00:30)
[2021-04-12] MEDS: morphine 4 mg/mL SDV 1 mL 2 MG IVP ×3 (00:31→09:30)
[2021-04-12] MEDS: piperacillin-tazobactam 3.375 GM in sodium chloride 0.9% (plus) 50 ML IV (03:40)
[2021-04-12 05:30] LABS: Basophils # 0.1 10^3/uL (0.0-0.1); Basophils % 0.8 %; Eosinophils # 0.6 10^3/uL (0.0-0.8); Hematocrit 42.2 % (42.0-52.0); Lymphocytes # 2.4 10^3/uL (0.8-4.8); Lymphocytes % 19.4 %; Mean Corpuscular HGB Conc 30.8 g/dL (30.0-36.0); Mean Corpuscular Hemoglobin 24.9 pg (28.0-34.0); Mean Corpuscular Volume 80.8 fl (80-94); Mean Platelet Volume 10.2 fL (7.4-10.4); Monocytes # 0.8 10^3/uL (0.2-0.9); Monocytes % 6.5 %; Neutrophils # 8.31 10^3/uL (1.8-7.7); Neutrophils % 67.9 %; Nucleated Red Blood Cells % 0 %; Platelet Count 355 10^3/cmm (130-400); Red Blood Count 5.22 10^6/uL (4.1-5.3); Red Cell Distribution Width 15.3 % (12.1-15.1); White Blood Count 12.2 10^3/uL (4.0-10.0)
[2021-04-12 05:57] LABS: Alanine Aminotransferase 24 U/L (0-41); Albumin Level 3.6 g/dL (3.5-5.2); Alkaline Phosphatase 78 IU/L (40-130); Anion Gap 13.5 (5-19); Aspartate Amino Transferase 14 U/L (0-40); Blood Urea Nitrogen 7 mg/dL (6-20); Calcium 8.8 mg/dL (8.5-10.5); Carbon Dioxide 27 mmol/L (22-29); Chloride 100 mmol/L (98-107); Globulin 3.5 g/dL (1.3-4.6); Glomerular Filtration Rate 125.5 mL/min (90-130); Glucose 106 mg/dL (65-115); Magnesium 2.1 mg/dL (1.7-2.3); Osmolality Calculated 280 mOsm/kg (285-295); Phosphorus 3.6 mg/dL (2.5-4.5); Potassium 4.5 mmol/L (3.5-5.1); Sodium 136 mmol/L (136-145); Total Bilirubin 0.4 mg/dL (0.15-1.2); Total Protein 7.1 g/dL (6.6-8.7)
--- NOTE | 2021-04-12 06:54 | PC.NURSE ---
Pt refused morning blood sugar check stating let's take care of the current problem and go from there
--- NOTE | 2021-04-12 12:08 | PM.DCS ---
Discharge Providers Date of Admission: 04/10/21 18:31 Date of Discharge: April 12, 2021 Attending Provider at Admission: Parag Israel MD Attending Provider at Discharge: Parag Israel MD Primary Care Provider: Eva Laird MD Diagnoses at Discharge Discharge Diagnosis (1) Cellulitis of scrotum: Status: Acute Reason for Visit Reason for Visit: PAIN/SWELLING LUMP IN GROIN AREA Hospital Course Hospital Course Loc Carl is a 41 year old male with a past medical history of hypertension, who presents [facility] due to scrotal swelling. Patient was admitted to [facility] for scrotal cellulitis with abscess, urology was consulted, had an incision and drainage in the emergency room, with packing, was treated with broad-spectrum antibiotic therapy, clinically improved. On discharge no repeat packing was required. Advised to keep the area clean and dry, continue to monitor for drainage, daily dressing changes. Discharged on 7 remaining days of Augmentin and doxycycline. Follow-up with Dr. Fiore in 1 week. For his prediabetes, follow-up with primary care provider, diabetic education, weight loss was discussed. Physical Exam Const: COMMON NORMALS: no acute distress and patient oriented x3 Lymph: LYMPHATIC: no lymphadenopathy noted Resp: COMMON NORMALS: normal respiratory effort, No retractions, No use of accessory muscles and clear to auscultation bilaterally AUSCULTATION: clear to auscultation bilaterally Cardio: COMMON NORMALS: regular rate, regular rhythm, S1 normal heart sound present and S2 normal heart sound present RATE: regular rate RHYTHM: regular rhythm HEART SOUNDS: S1 normal heart sound present and S2 normal heart sound present GI: COMMON NORMALS: Normal to inspection, nondistended, normoactive bowel sounds present, Soft to palpation and non-tender PALPATION: Yes Soft to palpation : PENIS: uncircumcised OTHER: Scrotal swelling, erythema, tenderness significantly improved, open area no drainage Extremity: COMMON NORMALS: no pedal edema Neuro: COMMON NORMALS: patient oriented x3 Psych: COMMON NORMALS: mental status grossly normal Discharge Data Data Completed and Pending: Completed Studies During Hospitalization Category Date Time Status CT abdomen pelvis w con* [id number] Urge nt Cat Scan 04/10/21 16:49 Completed US scrotum [id number] Urgent Ultrasound 04/10/21 16:13 Completed Pending at discharge Category Date Time Status Abscess Culture a nd Gram Stain Stat Lab 04/10/21 16:11 Results Blood Culture Sta t Lab 04/10/21 16:45 Results Complete Blood Co unt w/Auto AM LABS Lab 04/13/21 04:00 Ordered Comprehensive Met abolic Panel AM LA BS Lab 04/13/21 04:00 Ordered Magnesium AM LABS Lab 04/13/21 04:00 Ordered Phosphorus AM LAB S Lab 04/13/21 04:00 Ordered Vancomycin Trough Timed Lab 04/12/21 23:00 Ordered Labs from last 24 hours 04/12/21 04/12/21 04/11/21 05:06 05:06 22:59 WBC 12.2 H RBC 5.22 Hgb 13.0 Hct 42.2 MCV 80.8 MCH 24.9 L MCHC 30.8 RDW 15.3 H Plt Count 355 MPV 10.2 Neut % (Auto) 67.9 Lymph % (Auto) 19.4 [place] % (Auto) 6.5 Eos % (Auto) 5.0 Baso % (Auto) 0.8 Neut # (Auto) 8.31 H Lymph # (Auto) 2.4 [place] # (Auto) 0.8 Eos # (Auto) 0.6 Baso # (Auto) 0.1 Nucleated RBC % (a uto) 0 Nucleated RBCs # 0.0 Sodium 136 Potassium 4.5 Chloride 100 Carbon Dioxide 27 Anion Gap 13.5 BUN 7 Creatinine 0.7 GFR Calculation 125.5 Glucose 106 POC Glucose Calculated Osmolal ity 280 L Calcium 8.8 Phosphorus 3.6 Magnesium 2.1 Total Bilirubin 0.4 AST 14 ALT 24 Alkaline Phosphata se 78 Total Protein 7.1 Albumin 3.6 Globulin 3.5 Vancomycin Trough 18.7 H 04/11/21 04/11/21 19:54 17:19 WBC RBC Hgb Hct MCV MCH MCHC RDW Plt Count MPV Neut % (Auto) Lymph % (Auto) [place] % (Auto) Eos % (Auto) Baso % (Auto) Neut # (Auto) Lymph # (Auto) [place] # (Auto) Eos # (Auto) Baso # (Auto) Nucleated RBC % (a uto) Nucleated RBCs # Sodium Potassium Chloride Carbon Dioxide Anion Gap BUN Creatinine GFR Calculation Glucose POC Glucose 130 H 188 H Calculated Osmolal ity Calcium Phosphorus Magnesium Total Bilirubin AST ALT Alkaline Phosphata se Total Protein Albumin Globulin Vancomycin Trough Vitals: Last Vital Signs Temp 98.2 F 04/12/21 11:19 Pulse 77 04/12/21 11:19 Resp 16 04/12/21 11:19 BP 128/82 04/12/21 11:19 Pulse Ox 97 04/12/21 11:19 Discharge Plan Discharge Patient Disposition: Home Condition: Stable Prescriptions: New hydrocodone-acetaminophen 5-325 mg tablet 1 tab PO BID PRN (Reason: pain) 7 Days Qty: 14 RF: 0 amoxicillin-pot clavulanate [Augmentin] 875-125 mg tablet 1 tab PO BID 7 Days Qty: 14 RF: 0 doxycycline hyclate 100 mg tablet 100 mg PO BID 7 Days Qty: 14 RF: 0 Continued amlodipine-valsartan 10-320 mg tablet 10 - 320 tab PO DAILY RF: 0 Discharge Orders: Discharge Order (Routine); Ordered 04/12/21 Ordered By: Parag Israel Referrals: Eva Laird MD [Primary Care Provider] - 4-7 days (Please follow up with your primary care provider within one week.) Juvenal Fiore MD [Physician] - 1 week Discharge Diet: Regular and Diabetic Discharge Activity: Resume usual activity Patient Instructions: Opioid Safety Activity Restrictions/Additional Instructions: -Please follow-up with your primary care provider for prediabetes -Please use hydrocodone sparingly for pain, do not drive or operate heavy machinery while taking medication -Take antibiotics as prescribed Discharge Attestations Time Spent in Discharge Care*: less than 30 min Quality Metrics Clinical Quality Measures During this hospital stay, did patient experience: None Coding Level of Care Code Acute [facility] note Diagnoses Cellulitis of scrotum N49.2
== END 2021-04-12 12:35 | disposition home or self-care (01) ==
LOC: ER 19:31 → MEDSURG 19:34
PROVIDERS: Physician Assistant; Admitting Provider Family Medicine; Emergency Provider Nurse Practitioner Family; PCP Family Medicine; Visit Provider Family Medicine
DX: N49.2 Inflammatory disorders of scrotum (principal); I10 Essential (primary) hypertension
CPT/HCPCS: 55100; 36415; 36416; 74177; 76870; 80053; 80202; 81003; 82962; 83036; 83605; 83735; 84100; 85025; 86140; 87040; 87070; 87075; 87205; 93976; 96365; 96366; 96367; 96372; 96375; 96376; 99285; G0378; J1650; J1956; J2270; J2405; J2543; J3370; J7030; J7040; J7050; Q9967

== ENCOUNTER → 2021-04-18 07:53 | Outpatient (BNVA) | payer OTHER, SELFPAY | PROVIDERS: PCP Family Medicine; Visit Provider Urology | DX: N49.2 Inflammatory disorders of scrotum (principal) | CPT/HCPCS: 81003 ==

== ENCOUNTER 2024-02-08 10:33 | Emergency (ER) | payer OTHER, SELFPAY ==
--- NOTE | 2024-02-08 10:38 | ECG_ITS ---
[facility] Test Date: 2024-02-08 Pat Name: Loc Carl Department: Room: Gender: Male Hot Braider: : 1980 Requested By: Colten Zurita Order Number: [id number] Christy MD: Jm Ward M.D. Measurements Intervals [place] Rate: 84 P: 24 HI: 197 QRS: 17 QRSD: 108 T: 14 QT: 364 QTc: 432 Interpretive Statements SINUS RHYTHM Compared to ECG 12/30/2019 21:33:56 Intraventricular conduction delay no longer present Electronically Signed On 02-08-2024 16:41:24 CDT by Jm Ward M.D. [id number]
[2024-02-08 10:45] VITALS: BP 141/93; PULSE 89; TEMP 36.7; O2SAT 96; BMI 44.6
--- NOTE | 2024-02-08 10:59 | ED_ITS ---
HPI - Extremity Problem 2 General: Chief complaint: Extremity Problem,Nontraumatic Stated complaint: should blade and left arm pain Time Seen by Provider: 02/08/24 10:58 History of Present Illness: 45-year-old male presents emergency room complaining of mild chest comfort with pain in the left shoulder blade and left arm. The chest discomfort has been varying his primary problem is pain in the upper back lower portion of his neck at times will radiate down into his hand. He is not associated with chest pain or dissociated any shortness of breath. No known history of any coronary artery disease. He is moderately overweight and has a history of hypertension. Associated symptoms: Deny chest pain, fever(s) or rash Related Data Home Medications Medication Instructions Recorded Confirmed amlodipine 10 mg-valsartan 320 mg 10 - 320 tab PO DAILY 04/10/21 04/18/21 tablet Previous Rx's Medication Instructions Recorded diclofenac sodium 75 mg 75 mg PO Q12H PRN pain #20 tabs 02/08/24 tablet,delayed release prednisone 20 mg tablet 20 mg PO TID #15 tabs 02/08/24 tizanidine 4 mg tablet 4 mg PO Q6H PRN muscle spasticity 02/08/24 #20 tabs Allergies Allergy/AdvReac Type Severity Reaction Status Date / Time sulfamethoxazole Allergy ALGY-Rash Verified 02/08/24 10:49 [From Bactrim] trimethoprim [From Bactrim] Allergy ALGY-Rash Verified 02/08/24 10:49 Review of Systems 2 Const: Denies: fever(s) or chills Card: Denies: chest pain Resp: Denies: dyspnea GI: Denies: abdominal pain : Denies: dysuria, urinary frequency or urinary urgency Musc: Denies: neck pain or back pain Skin/Breast: Denies: rash PFSH ED 2 PFSH: Medical History (Updated 02/08/24 @ 13:34 by Colten Gregory DO) Cellulitis of scrotum Hypertension Surgical History History of hernia surgery History of knee surgery Family History Family/Other Colon cancer Father Pacemaker Social History Smoking and tobacco/nicotine status: current every day tobacco/nicotine user Alcohol intake: current Alcohol intake frequency: few times a week Substance/Drug Use: never Marital status: Single Current occupational status: employed Physical Exam 2 Const: COMMON NORMALS: no acute distress GENERAL APPEARANCE: cooperative and comfortable ORIENTATION/CONSCIOUSNESS: Yes awake, Yes oriented to person, Yes oriented to place and Yes oriented to time HENMT: COMMON NORMALS: normocephalic, atraumatic and hearing grossly normal bilaterally HEAD & SCALP: normocephalic and atraumatic Resp: COMMON NORMALS: normal respiratory effort, No retractions, No use of accessory muscles and clear to auscultation bilaterally AUSCULTATION: clear to auscultation bilaterally Cardio: COMMON NORMALS: regular rate, regular rhythm and No murmurs present (Cardio) RATE: regular rate RHYTHM: regular rhythm GI: COMMON NORMALS: Soft to palpation and No hepatosplenomegaly present A USCULTATION: Yes normoactive bowel sounds PALPATION: Yes Soft to palpation, No Tenderness to palpation present (GI), No Guarding due to palpation present (GI) and Yes No hepatosplenomegaly present Extremity: COMMON NORMALS: normal to inspection, capillary refill normal, no clubbing, cyanosis or edema, no calf tenderness and no pedal edema OTHER: Neurovascular the left upper arm is intact sterile tech strength equal bilaterally there is no focal neurologic deficits. Neuro: SENSORIUM/ORIENTATION: Yes oriented to person, Yes oriented to place and Yes oriented to time OTHER: No focal deficit suggestive of a stroke good facial symmetry good vision use of all 4 extremities without ataxia Skin: COMMON NORMALS: no rashes or lesions noted GENERAL SKIN EXAM: no rashes or lesions noted Course 2 Vital Signs: Vital signs: Vital Signs Temperature 98.1 F 02/08/24 10:45 Pulse Rate 71 02/08/24 13:43 Blood Pressure 144/97 02/08/24 13:43 Pulse Oximetry 95 02/08/24 13:43 Oxygen Delivery Me thod Room Air 02/08/24 13:00 MDM - Extremity (Nontraumatic) Medical Decision Making Patient appears to have a cervical radiculopathy. Symptoms not suggestive of cardiac source she is not having any chest comfort at this time we did have his chest discomfort was twinges that lasted for a few seconds. He is more suggestive of a cervical radiculopathy will. Will put him on steroids diclofenac and tizanidine refer him to orthopedic spine surgery Lab Data 02/08/24 11:10 02/08/24 11:10 Radiology Impressions Chest X-Ray 02/08/24 10:59 Impression: No dense consolidation is identified. Cervical Spine CT 02/08/24 12:29 Impression: There is no compression or subluxation. There is no displaced fracture Significant degenerative changes are not identified however the mid and lower cervical spine are obscured. If symptoms persist MR of the cervical spine is recommended. Laboratory Results WBC 9.92 10^3/uL (3.29-11.43) 02/08/24 11:10 RBC 5.66 10^6/uL (3.85-5.65) H 02/08/24 11:10 Hgb 14.50 g/dL (11.27-16.99) 02/08/24 11:10 Hct 45.0 % (37-53) 02/08/24 11:10 MCV 79.5 fl (82-101) L 02/08/24 11:10 MCH 25.6 pg (27-33) L 02/08/24 11:10 MCHC 32.2 g/dL (30-55) 02/08/24 11:10 RDW 14.6 % (12.1-15.1) 02/08/24 11:10 Plt Count 360 10^3/cmm (157-399) 02/08/24 11:10 MPV 9.8 fL (7.4-10.4) 02/08/24 11:10 Neut % (Auto) 58.7 % 02/08/24 11:10 Lymph % (Auto) 30.9 % 02/08/24 11:10 Hodgeman % (Auto) 6.1 % 02/08/24 11:10 Eos % (Auto) 3.0 % 02/08/24 11:10 Baso % (Auto) 1.0 % 02/08/24 11:10 Neut # (Auto) 5.81 10^3/uL (1.8-7.7) 02/08/24 11:10 Lymph # (Auto) 3.1 10^3/uL (0.8-4.8) 02/08/24 11:10 Hodgeman # (Auto) 0.6 10^3/uL (0.2-0.9) 02/08/24 11:10 Eos # (Auto) 0.3 10^3/uL (0.0-0.8) 02/08/24 11:10 Baso # (Auto) 0.1 10^3/uL (0.0-0.1) 02/08/24 11:10 Nucleated RBC % (auto) 0 % 02/08/24 11:10 Nucleated RBCs # 0.0 /100WBC 02/08/24 11:10 Sodium 139 mmol/L (136-145) 02/08/24 11:10 Potassium 4.0 mmol/L (3.5-5.1) 02/08/24 11:10 Chloride 102 mmol/L (98-107) 02/08/24 11:10 Carbon Dioxide 22 mmol/L (22-29) 02/08/24 11:10 Anion Gap 19.0 (5-19) 02/08/24 11:10 BUN 11 mg/dL (6-20) 02/08/24 11:10 Creatinine 0.8 mg/dL (0.7-1.2) 02/08/24 11:10 GFR Calculation 106.0 mL/min (90-130) 02/08/24 11:10 Glucose 118 mg/dL (65-115) H 02/08/24 11:10 Calculated Osmolality 288 mOsm/kg (285-295) 02/08/24 11:10 Calcium 9.1 mg/dL (8.5-10.5) 02/08/24 11:10 Total Bilirubin 0.3 mg/dL (0.15-1.2) 02/08/24 11:10 AST 14 U/L (0-40) 02/08/24 11:10 ALT 23 U/L (0-41) 02/08/24 11:10 Alkaline Phosphatase 71 U/L (40-130) 02/08/24 11:10 Troponin T Baseline < 6 ng/L (0-15) 02/08/24 11:10 Troponin T 120 Minute 6.00 ng/L (0-15) 02/08/24 12:46 Delta Troponin T 0.02408 ABS# (0-10) 02/08/24 12:46 Total Protein 6.9 g/dL (6.6-8.7) 02/08/24 11:10 Albumin 4.2 g/dL (3.5-5.2) 02/08/24 11:10 Globulin 2.7 g/dL (1.3-4.6) 02/08/24 11:10 All radiology interpretation(s) finalized by discharge Discharge Plan Discharge Patient Disposition: Home Clinical Impression: Cervical radiculopathy Condition: Stable Prescriptions: New tizanidine 4 mg tablet 4 mg PO Q6H PRN (Reason: muscle spasticity) Qty: 20 0RF Rx Instructions: do not exceed 3 doses per 24 hrs prednisone 20 mg tablet 20 mg PO TID Qty: 15 0RF Rx Instructions: 1 p.o. 3 times daily x3 days, 1 p.o. twice daily x2 days, 1 p.o. daily x2 days diclofenac sodium 75 mg tablet,delayed release (DR/EC) 75 mg PO Q12H PRN (Reason: pain) Qty: 20 0RF No Action amlodipine-valsartan 10-320 mg tablet 10 - 320 tab PO DAILY Discharge Orders: Discharge ED (Routine); Ordered 02/08/24 Ordered By: Colten Gregory Referrals: Benjamín Givens DO [Primary Care Provider] - Discharge Diet: Usual diet Discharge Activity: Increase activity as tolerated Patient Instructions: Opioid Safety, Pain Management Activity Restrictions/Additional Instructions: Thank you for choosing [facility] for your healthcare needs today. It is very important that you follow up as instructed or that you return to the Emergency Department should you have concerns or if your condition changes or worsens in any way. You were evaluated for neck pain and left arm pain. Your cardiac enzymes and EKG were normal is no sign of acute coronary syndrome. Suspect your symptoms are caused by nerve root irritation in the neck. The remainder of your labs did not show anything clinically significant. Will discharge you home on steroids anti-inflammatories muscle relaxers we will set you up for an outpatient MRI and follow-up with orthopedic spine surgery. Coding Level of Care Code ED Pile Operator for Tammi Hernandez
--- NOTE | 2024-02-08 10:59 | XR_ITS ---
WS: [id number] Examination: XR chest 1V portable [id number] Reason for Exam: dyspnea Date: 02/08/2024 Comparison: 12/15/2009 Findings: The heart is normal in size. The mediastinum is not widened. There is no congestion or effusion. There is no dense consolidation XR/XR chest 1V portable [id number] Impression: No dense consolidation is identified.
[2024-02-08 11:21] LABS: Basophils # 0.1 10^3/uL (0.0-0.1); Eosinophils # 0.3 10^3/uL (0.0-0.8); Lymphocytes # 3.1 10^3/uL (0.8-4.8); Lymphocytes % 30.9 %; Mean Corpuscular HGB Conc 32.2 g/dL (30-55); Mean Corpuscular Hemoglobin 25.6 pg (27-33); Mean Corpuscular Volume 79.5 fl (82-101); Mean Platelet Volume 9.8 fL (7.4-10.4); Monocytes # 0.6 10^3/uL (0.2-0.9); Monocytes % 6.1 %; Neutrophils # 5.81 10^3/uL (1.8-7.7); Neutrophils % 58.7 %; Nucleated Red Blood Cells % 0 %; Platelet Count 360 10^3/cmm (157-399); Red Blood Count 5.66 10^6/uL (3.85-5.65); Red Cell Distribution Width 14.6 % (12.1-15.1); White Blood Count 9.92 10^3/uL (3.29-11.43)
[2024-02-08 11:30] VITALS: BP 136/87; PULSE 78; O2SAT 95
[2024-02-08 11:37] LABS: Alanine Aminotransferase 23 U/L (0-41); Albumin Level 4.2 g/dL (3.5-5.2); Alkaline Phosphatase 71 U/L (40-130); Aspartate Amino Transferase 14 U/L (0-40); Blood Urea Nitrogen 11 mg/dL (6-20); Calcium 9.1 mg/dL (8.5-10.5); Carbon Dioxide 22 mmol/L (22-29); Chloride 102 mmol/L (98-107); Creatinine Clr Calc Pharmacy 175.6514; Globulin 2.7 g/dL (1.3-4.6); Glucose 118 mg/dL (65-115); Osmolality Calculated 288 mOsm/kg (285-295); Sodium 139 mmol/L (136-145); Total Bilirubin 0.3 mg/dL (0.15-1.2); Total Protein 6.9 g/dL (6.6-8.7)
[2024-02-08 11:45] LABS: Troponin(5th) Baseline < 6 ng/L (0-15)
[2024-02-08 12:00] VITALS: BP 124/81; PULSE 74; O2SAT 90
--- NOTE | 2024-02-08 12:29 | CT_ITS ---
WS: [id number] Examination: CT cervical spin wo con* [id number] Reason for Exam: Neck pain and radicular symptoms Date: 02/08/2024 Comparison: None. DLP: 306.[address] scans at [facility] use at least one of these dose optimization techniques: automated e xposure control; mA and/or kV adjustment per patient size (includes targeted exams where dose is matc hed to clinical indication); or iterative reconstruction. Findings: The bone density is maintained. There is no destruction. There is no wedging or compression. There is no subluxation. No displaced fractures identified. The disc space heights are maintained. There is no dominant endplate or uncinate osteophyte formation . There is no bony narrowing of the canal neural foramen. Artifact obscures the lower half of the cer vical spine detail. Disc herniation at this level cannot be excluded. CT/CT cervical spin wo con* [id number] Impression: There is no compression or subluxation. There is no displaced fracture Significant degenerative changes are not identified however the mid and lower c ervical spine are obscured. If symptoms persist MR of the cervical spine is rec ommended.
[2024-02-08 13:00] VITALS: BP 137/77; PULSE 81; O2SAT 94
[2024-02-08 13:20] LABS: Troponin 5 2HR Delta 0.00001 ABS# (0-10)
--- NOTE | 2024-02-08 13:31 | ECG_ITS ---
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 Measurements Intervals [place] Rate: 68 P: 33 FL: 201 QRS: 29 QRSD: 96 T: 14 QT: 383 QTc: 409 Interpretive Statements SINUS RHYTHM Compared to ECG 02/08/2024 10:38:07 No significant changes Electronically Signed On 02-08-2024 16:44:41 CDT by Jm Ward M.D. [email or web address]
[2024-02-08 13:43] VITALS: BP 144/97; PULSE 71; O2SAT 95
--- NOTE | 2024-02-10 16:26 | DCPLANNER ---
faxed mri order to scheduling and messaged ortho
--- NOTE | 2024-02-14 16:22 | DCPLANNER ---
PT told Jocelyne in scheduling that he was refusing the MRI that Dr. Gregory ordered for an er f/u
== END 2024-02-08 13:45 | disposition home or self-care (01) ==
PROVIDERS: Emergency Provider Family Medicine; PCP Electrodiagnostic Medicine
DX: M54.12 Radiculopathy, cervical region (principal); I10 Essential (primary) hypertension; Z72.0 Tobacco use
CPT/HCPCS: 36415; 71045; 72125; 80053; 84484; 85025; 93005; 99285

== ENCOUNTER 2024-12-21 07:57 | Outpatient (CLI) | payer OTHER, SELFPAY ==
--- NOTE | 2024-12-21 08:07 | CT_ITS ---
WS: [id number] CT SINUSES TECHNIQUE: Noncontrast CT of the paranasal sinuses with coronal and sagittal reformatted images. CLINICAL INFORMATION: CHRONIC SINUSITIS COMPARISON: None. DLP: 343.[address] scans at [facility] use at least one of these dose optimization techniques: automated exposure control; mA and/or kV adjustment per patient size (includes targeted exams where dose is matched to clinical indication); or iterative reconstruction. FINDINGS: Paranasal sinuses are well aerated. Mild mucosal thickening in the ethmoid air cells. Mild mucosal thickening in the RIGHT maxillary sinus. Ostiomeatal units are patent with mild narrowing. Frontal sinuses are well aerated. Small retention cyst in the midline variant frontal intersinus septal air. Sphenoid sinuses are well aerated. Mild mucosal thickening along the LEFT sphenoid sinus ostia. Mastoid air cells are well aerated. Normal posterior nasopharynx. Normal parapharyngeal fat. Anterior subluxation of the mandibular condyles in the condylar fossa RIGHT greater than LEFT. Normal visualized craniocervical junction. Mild shaped nasal septal deviation measuring [address]/CT sinus wo con* [id number] IMPRESSION: 1. Mild S-shaped nasal septal deviation measuring 4 to 5 mm 2. Variant frontal intersinus septal air cell with a small retention cyst alena uring 6 mm 3. Paranasal sinuses are well aerated with mild mucosal thickening in the RIGH T maxillary sinus and ethmoid air cells. 4. Ostiomeatal units are patent with mild narrowing of the ostia. 5. Mastoid air cells are well aerated.
== END 2024-12-21 07:58 | disposition home or self-care (01) ==
PROVIDERS: PCP Electrodiagnostic Medicine; Visit Provider Electrodiagnostic Medicine
DX: J32.9 Chronic sinusitis, unspecified (principal); J34.2 Deviated nasal septum; J34.1 Cyst and mucocele of nose and nasal sinus
CPT/HCPCS: 70486